=== PATIENT | female | born 1965 | race African-American/Black ===

== ENCOUNTER 2019-03-15 08:26 | Inpatient (IN) | payer OTHER ==
[2019-03-15] VITALS (47 sets, daily range): BP systolic 140–221; BP diastolic 72–132
[~2019-03-15] VITALS: Ht 165.1 cm; Wt 134.7 kg
--- NOTE | ~2019-03-15 | HC ---
[facility] [place] [address] CONSULTATION Name: ANCA URIOSTEGUI Room #: 215-P ADM IN M.R.#: [id number] Admission: 03/15/19 Attend Phys: Masha Rosales MD Discharge: Date of : 65 Report #: [id number] THIS REPORT FOR: cc: KYLAH OLIVO MD Physician not on staff Octaviano Anderson MD ~ THIS REPORT FOR: //name// CC: KYLAH Rosales Physician staff DATE OF SERVICE: 03/21/2019 HISTORY OF PRESENT ILLNESS: The patient is a 54-year-old -[place] female admitted with an acute asthma exacerbation with acute respiratory failure, influenza A. She was noted to have respiratory failure, was in the ICU, mechanically ventilated. She was extubated on 03/18/2019. She is on a Solu-Medrol taper to p.o. today. She is continuing on Tamiflu and is on IV ceftriaxone. We are seeing her in rehabilitation medicine consultation. PAST MEDICAL HISTORY: Bronchial asthma for 10 years, hypertension, and elevated lipids. She has a history of morbid obesity, BMI 49.7. She was receiving oxygen just at night with her CPAP. MEDICATIONS: Please see the full medication listing. ALLERGIES: No known drug allergies. SOCIAL HISTORY: Lives in an apartment with her brother. There are 3 steps in. She was premorbidly independent without gait aids. Brother is retired and can assist. REVIEW OF SYSTEMS: No current complaints of chest pain, shortness of breath or abdominal discomfort. PHYSICAL EXAMINATION: GENERAL: A 54-year-old obese -[place] female in no obvious distress. VITAL SIGNS: Last recorded temperature is 98, pulse 95, respirations 20, blood pressure is 143/59. The patient is alert, pleasant, oriented. HEENT: Appeared to be benign. NEUROLOGIC: Cranial nerves grossly intact. She is on 4 liters nasal cannula. EXTREMITIES: She has functional range of motion of both upper extremities. Strength is grade 4 to 4-/5. DTRs are trace to 1. Lower extremities, no focal calf swelling, functional range of motion with strength of grade 4/5 to 4-/5. DTRs are trace to 1. She is min assist with sit to stand, ambulating [address] [address] CONSULTATION Name: ANCA URIOSTEGUI Room #: 215-[facility] IN .R.#: [id number] Admission: 03/15/19 Attend Phys: Masha Rosales MD Discharge: Date of : 65 Report #: [id number] min assist without an assistive device. She was needing lower body dressing, min assist. ASSESSMENT: A 54-year-old white female with the following problem list: 1. Pulmonary rehabilitation. 2. Acute respiratory failure, improved. 3. Acute asthma exacerbation. 4. Hypertension. 5. Bronchial asthma in the past. 6. Morbid obesity. PLAN: Both physical therapy and occupational therapy have indicated that the patient is doing well from a functional perspective, I would anticipate that the patient should be able to discharge directly home to the home setting as she further medically stabilizes. This would appear to be a reasonable plan from my perspective. We will follow from the periphery, but would anticipate she should be able to return directly home as she further medically stabilizes. Again, rehabilitation [address] [place] [address] beds are tight and it would appear that she will likely be able to return directly home as she further medically stabilizes. By: [id number] Octaviano Anderson MD /nt
[2019-03-15] MEDS ORDERED: TRAZODONE HCL100 MG PO (08:45)
[2019-03-15] MEDS ORDERED: RESTORIL15 M1 PO (08:47)
[2019-03-15] MEDS ORDERED: TOPAMAX100 MG PO (08:48)
[2019-03-15] MEDS ORDERED: LIPITOR10 MG PO (08:48)
[2019-03-15] MEDS ORDERED: REMERON SOLTAB45 MG PO (08:48)
[2019-03-15] MEDS ORDERED: METFORMIN HCL500 M3 PO (08:49)
[2019-03-15] MEDS ORDERED: SPIRONOLACTONE25 MG PO (08:49)
[2019-03-15] MEDS ORDERED: INGREZZA40 MG PO (08:50)
[2019-03-15] MEDS ORDERED: NEXIUM40 M2 PO (08:50)
[2019-03-15] MEDS ORDERED: INVEGA6 MG PO (08:50)
[2019-03-15] MEDS ORDERED: MS CONTIN 30 MG30 M1 PO (08:51)
[2019-03-15] MEDS ORDERED: ROXICODONE15 M1 PO (08:52)
[2019-03-15 09:19] LABS: BE(vivo) 0.9 mmol/L (-2 to +3); HCO3 28.3 mmol/L (22.0-26.0); PCO2 58.3 mmHg (35.0-45.0); PO2 78.6 mmHg (80.0-100.0); pH 7.304 (7.360-7.450); sO2 94.2 % (92.0-98.0)
[2019-03-15 09:45] LABS: ABSOLUTE NEUTROPHILS 7.7 thou/uL (1.4-8.2); BASOPHILS 0.5 % (0.0-2.0); EOSINOPHILS 0.1 % (0.0-3.0); HEMATOCRIT 37.2 % (37.0-47.0); HEMOGLOBIN 11.4 gm/dL (12.0-15.0); LYMPHOCYTES 19.7 % (24.0-44.0); MCH 23.9 pg (26.0-34.0); MCHC 30.6 g/dL (28.0-37.0); MCV 78.1 fL (80.0-100.0); MONOCYTES 7.3 % (1.0-8.0); PLATELET COUNT 331 thou/uL (150-400); POLYS 72.4 % (36.0-66.0); RBC 4.76 mil/uL (4.20-5.00); WBC 10.7 thou/uL (4.0-11.0)
[2019-03-15 09:58] LABS: CALCIUM 8.9 mg/dL (8.5-10.1); POTASSIUM 3.2 mmol/L (3.5-5.1)
[2019-03-15 10:04] LABS: ALBUMIN 3.5 g/dL (3.4-5.0); DIRECT BILIRUBIN 0.2 mg/dL (<0.1-0.2); TOTAL BILIRUBIN 0.3 mg/dL (<0.1-1.0); TOTAL PROTEIN 8.6 g/dL (6.4-8.2)
[2019-03-15 11:02] LABS: ANISOCYTOSIS 1+; PLATELET ESTIMATE NORMAL
[2019-03-15 13:46] LABS: BE(vivo) 3.2 mmol/L (-2 to +3); HCO3 30.5 mmol/L (22.0-26.0); PCO2 59.8 mmHg (35.0-45.0); PO2 67.7 mmHg (80.0-100.0); pH 7.326 (7.360-7.450); sO2 91.7 % (92.0-98.0)
--- NOTE | 2019-03-15 16:00 | NUR ---
PT ARRIVED TO THE UNIT @ 1430 WITH THE ASSIST OF YOSHI OWEN. PT ARRIVED ON 3L OF 02, PT SATS IN THE LOW 90'S. 02 INCREASED TO 4L, SATS 90%. DR LOZANO CALLED AND REPORT GIVEN, BIPAP INITIATED.
--- NOTE | 2019-03-15 19:01 | NUR ---
VASCULAR ACCESS TEAM CONSULTED FOR PICC PLACEMENT. DISCUSSED BENEFITS AND RISKS WITH PT, VERBALIZED UNDERSTANDING. ORDER,CONSENT,LABS,HISTORY VERIFIED. ATTEMPTED GIOVANNA CEPHALIC BUT UNABLE TO PASS CATH PAST SHOULDER AREA. GIOVANNA BASILIC ALSO WIDELY PATENT WITHUSG. PICC TRIMMED TO 52CM INSERTED TO 2CM EXTERNAL. STAT CXR ORDERED.
--- NOTE | 2019-03-15 19:34 | NUR ---
CXR CONFIRMED PICC AT [facility], PICC RELEASED FOR IMMEDIATE USE PER PROTOCOL.
[2019-03-16] VITALS (25 sets, daily range): BP systolic 132–179; BP diastolic 72–98
--- NOTE | 2019-03-16 01:48 | NUR ---
PATIENT ABLE TO FOLLOW COMMANDS. ON PROPOFOL GTT, TITRATED FOR SEDATION. MEDICATED FOR PAIN RELIEF. POTASSUIM BEING REPLACED. TALKED TO SISTERWilliam MENDES DURING THE NIGHT. WILL CONTINUE TO MONITOR.
[2019-03-16 05:23] LABS: BE(vivo) -1.7 mmol/L (-2 to +3); HCO3 24.2 mmol/L (22.0-26.0); PCO2 45.5 mmHg (35.0-45.0); PO2 71.9 mmHg (80.0-100.0); pH 7.343 (7.360-7.450); sO2 93.6 % (92.0-98.0)
[2019-03-16 05:36] LABS: ABSOLUTE NEUTROPHILS 6.2 thou/uL (1.4-8.2); HEMATOCRIT 36.2 % (37.0-47.0); HEMOGLOBIN 11.2 gm/dL (12.0-15.0); LYMPHOCYTES 8.6 % (24.0-44.0); MCH 24.2 pg (26.0-34.0); MONOCYTES 4.4 % (1.0-8.0); PLATELET COUNT 332 thou/uL (150-400); RBC 4.64 mil/uL (4.20-5.00); RDW 16.8 % (10.5-14.5); WBC 7.2 thou/uL (4.0-11.0)
[2019-03-16 05:38] LABS: BE(vivo) 3.7 mmol/L (-2 to +3); HCO3 29.3 mmol/L (22.0-26.0); PCO2 48.8 mmHg (35.0-45.0); PO2 67.6 mmHg (80.0-100.0); pH 7.397 (7.360-7.450); sO2 93.3 % (92.0-98.0)
[2019-03-16 06:09] LABS: ALBUMIN 3.2 g/dL (3.4-5.0); CALCIUM 8.8 mg/dL (8.5-10.1); CREATININE 0.7 mg/dL (0.6-1.0); PHOSPHORUS 2.4 mg/dL (2.5-4.9); POTASSIUM 3.5 mmol/L (3.5-5.1); TOTAL BILIRUBIN 0.4 mg/dL (<0.1-1.0); TOTAL PROTEIN 8.4 g/dL (6.4-8.2)
--- NOTE | 2019-03-16 09:20 | NUR ---
Recommend start tube feed of vital high protein at 30ml/hr. Will follow up for goal rate recommendations on 03/17/19
--- NOTE | 2019-03-16 15:57 | NUR ---
PT ADMITTED RELATED TO ASTHMA EXCERBATION; HYPOXIA; FLU TYPE A. CM REVIEWED CHART AND SPOKE WITH CARE TEAM. PT IS CURRENTLY SEDATED AND INTUBATED. CM CALLED DELORIS HER LISTED CONTACTS AND LEFT MESSAGES. GUY CALLED CM BACK SHE IS PT'S SISTER AND STATED THAT SHE IS ALSO SICK. SHE INDICATED THAT PT'S BROTHER MAHNAZ IS IN ROOM 218 HERE AT [facility] AND THAT HE IS HER DPOA. SHE STATED THAT PT RESIDES IN AN APARTMENT IN [facility] WITH HER BROTHER WITH 5 STEPS TO ENTER AND NO STEPS INSIDE. 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 SISTER INDICATED PT HDA A NEBULIZER FOR HOME USE. CM TO FOLLOW INDICATED WITH DC PLANNING.
--- NOTE | 2019-03-16 20:10 | NUR ---
ASSUMED CARE OF PT AT 0700. NO CPAP TODAY, TITRATE DOWN FIO2. FOLLOWS COMMANDS. FAMILY MAY BRING INVEGA FROM HOME PER DR TYLER.
[2019-03-17] VITALS (24 sets, daily range): BP systolic 155–191; BP diastolic 78–102
[2019-03-17 04:34] LABS: HEMATOCRIT 36.9 % (37.0-47.0); HEMOGLOBIN 11.3 gm/dL (12.0-15.0); MCH 23.7 pg (26.0-34.0); MCHC 30.6 g/dL (28.0-37.0); MCV 77.5 fL (80.0-100.0); RBC 4.76 mil/uL (4.20-5.00); RDW 17.2 % (10.5-14.5); WBC 10.5 thou/uL (4.0-11.0)
[2019-03-17 04:38] LABS: CALCIUM 8.5 mg/dL (8.5-10.1); CREATININE 0.8 mg/dL (0.6-1.0); POTASSIUM 3.2 mmol/L (3.5-5.1)
[2019-03-17 10:00] LABS: BE(vivo) 7.5 mmol/L (-2 to +3); HCO3 33.1 mmol/L (22.0-26.0); PCO2 50.8 mmHg (35.0-45.0); pH 7.432 (7.360-7.450); sO2 91.7 % (92.0-98.0)
--- NOTE | 2019-03-17 10:46 | NUR ---
ON THE VENT WITH LIGHT SEDATION, AWAKENS AND FOLLOWS SOME COMMANDS. HYPERTENSIVE AND DR. TYLER NOTIFIED HE ROUNDED. OTHER VITALS STABLE. CPAP TRIAL THIS MORNING AND ABG OBTAINED AND PAGE PLACED TO DR. LOZANO. TOLERATING TF W/MINIMAL RESIDUALS. ALBERTO WITH ADEQUATE OUTPUT NOTED. WILL CONTINUE WITH POC.
--- NOTE | 2019-03-17 11:07 | NUR ---
DR. LOZANO CALLED BACK AND ABG RESULTS REPORTED. ORDERS TO KEEP SEDATED ON THE VENT AND CPAP AGAIN TOMORROW ONCE ABLE TO WEAN OFF SEDATION AND/OR SWITCH TO DIFFERENT SEDATIVE.
--- NOTE | 2019-03-17 16:03 | NUR ---
CALL PLACED TO INDIVIDUAL LISTED GATE WATCHMAN (MAHNAZ URIOSTEGUI) IN REGARDS TO BRINGING IN SOME HOME MED (INVIGA) THAT [facility] DOESN'T STOCK. NO ANS ON THE PHONE BRIEF MESSAGE LEFT ON VOICEMAIL FOR MAHNAZ TO CALL BACK.
[2019-03-18] VITALS (28 sets, daily range): BP systolic 153–195; BP diastolic 78–107
[2019-03-18 03:23] LABS: HEMOGLOBIN 12.1 gm/dL (12.0-15.0); MCH 23.5 pg (26.0-34.0); MCHC 30.1 g/dL (28.0-37.0); RBC 5.13 mil/uL (4.20-5.00); RDW 16.9 % (10.5-14.5); WBC 11.4 thou/uL (4.0-11.0)
[2019-03-18 03:30] LABS: CALCIUM 8.3 mg/dL (8.5-10.1); CREATININE 0.9 mg/dL (0.6-1.0)
--- NOTE | 2019-03-18 07:41 | NUR ---
Family was in last night and said they they would bring the pt's medication, Invega, they're questions were answered and pt did interact with them. BGL levels remain elevated, she has received Moderate SSI, and this morning it is noted that her solumedrol has been titrated down. She also remains hypertensive, especially with the decrease in propofol, placement has been checked and it is believed that she moves her arm when BP is being taken. The bed is in the low/lockedposition, the call light is within reach and the siderails are up x 4.
--- NOTE | 2019-03-18 09:23 | NUR ---
Continue tube feeding at 30ml/hr due to high propofol demands.
[2019-03-18] MEDS ORDERED: INVEGA6 MG PO (09:47)
[2019-03-18 10:39] LABS: BE(vivo) 7.2 mmol/L (-2 to +3); PCO2 50.9 mmHg (35.0-45.0); PO2 70.9 mmHg (80.0-100.0); pH 7.429 (7.360-7.450); sO2 94.4 % (92.0-98.0)
--- NOTE | 2019-03-18 18:59 | NUR ---
ASSUMED CARE OF PT AT 0700. PT IS CURRENTLY A GCS OF 15. PT EXTUBATED AT 1145 AND FAUSTINO WELL WITH 6L NS O2. PT HAS BEEN AFIBRILE. PT ENCOURAGED TO USE INCENTIVE SPIROMETER. B/Ps HIGH AND PHYSICIAN NOTIFIED. ORDERS RCVD. K+ LOW THIS MORNING AND ORDERS TO REPLACED RCVD.
[2019-03-19] VITALS (42 sets, daily range): BP systolic 130–182; BP diastolic 76–96
[2019-03-19 03:44] LABS: HEMATOCRIT 40.8 % (37.0-47.0); HEMOGLOBIN 12.3 gm/dL (12.0-15.0); MCH 23.1 pg (26.0-34.0); MCHC 30.2 g/dL (28.0-37.0); MCV 76.5 fL (80.0-100.0); RBC 5.33 mil/uL (4.20-5.00); RDW 16.6 % (10.5-14.5); WBC 14.2 thou/uL (4.0-11.0)
[2019-03-19 03:51] LABS: CALCIUM 8.2 mg/dL (8.5-10.1); CREATININE 0.8 mg/dL (0.6-1.0)
[2019-03-19 03:55] LABS: POTASSIUM 2.6 mmol/L (3.5-5.1)
--- NOTE | 2019-03-19 06:25 | NUR ---
Pt presents with flat affect, questions are answered with only yes/no responses, she reports low back discomfort, but won't allow staff to assist with turns, (she has been shifted anyway). BP has been better this shift, no further hydralazine was given, SBP 130-150 mmHg. Pt was on a CPaP for a few hours last night, and is currently on 4 L/m via High Flow NC, she has a dry cough, is using sx and her IS. She is taking sm quantity of ice chips to moisten her mouth, no swallowing difficulties are noted. The bed is in the low/locked position, the call light is within reach and the bed alarm is set. Will continue to monitor
--- NOTE | 2019-03-19 14:26 | NUR ---
Nurse talked with Dr. Au about patient not having a bowel movement recorded since the . Physician expressed he would look into this. Physician also informed of home medications to see if we could reorder them, he reordered some home medications. Diet order obtained by physician. When burton arrived patient informed RN that she wears dentures but they are not here. Nurse offered to call family to have them bring her dentures, however patient expressed she did not want nurse to. Intake and output as documented. Vital signs stable with heart rate 70's-80's. Blood pressure has not sustained in clinical parameter to get prn hydralazine. Bedside swallow performed and patient passed with solid and liquids. No hoarse voice noted, no pocketing, no coughing noted. She was able to swallow all her pills without difficulty. Report given to night clerk RN for continuation of care. Patient progressing towards plan of care of improving oxygenation, adding in diet order, and will attempt to increase activity as tolerated.
--- NOTE | 2019-03-19 18:12 | NUR ---
PT TOLERATING PO WELL. PROGRESS TOWARDS GOALS.
[2019-03-20] VITALS (13 sets, daily range): BP systolic 132–162; BP diastolic 73–105
[2019-03-20 00:22] LABS: MAGNESIUM 2.3 mg/dL (1.8-2.4); POTASSIUM 3.7 mmol/L (3.5-5.1)
[2019-03-20 05:39] LABS: HEMATOCRIT 40.5 % (37.0-47.0); HEMOGLOBIN 12.4 gm/dL (12.0-15.0); MCH 23.8 pg (26.0-34.0); MCHC 30.7 g/dL (28.0-37.0); MCV 77.3 fL (80.0-100.0); RBC 5.23 mil/uL (4.20-5.00)
[2019-03-20 05:54] LABS: CALCIUM 8.6 mg/dL (8.5-10.1); CREATININE 0.7 mg/dL (0.6-1.0); POTASSIUM 3.6 mmol/L (3.5-5.1)
--- NOTE | 2019-03-20 13:50 | NUR ---
PT TRANSFERRED TO CCT ROOM 215. REPORT CALLED TO BRAYDEN CLEARY.
--- NOTE | 2019-03-20 17:59 | NUR ---
ASSUMED CARE OF PT AT APPROX 1400 TRANSFER FROM ICU. ASSESSMENT CHARTED. VSS. PT ON 4L NC, NO C/O SOA. C/O PAIN TREATED WITH IV MEDS WITH PARTIAL RELIEF. ALBERTO IN PLACE. WILL CONTINUE TO MONITOR AND FOLLOW POC.
[2019-03-21 00:35] VITALS: BP 137/72
[2019-03-21 05:15] VITALS: BP 162/93
[2019-03-21 08:00] VITALS: BP 184/96
--- NOTE | 2019-03-21 11:33 | NUR ---
Followup: has been extubated, transferred out of ICU, tube feeds discontinued and diet advanced. Eating 50-100%. BG still elevated 207-314, hx DM and steroid to discontinue. Wt is obese. Nutrition status changed to low nutrition risk
[2019-03-21 12:00] VITALS: BP 143/59
--- NOTE | 2019-03-21 14:28 | NUR ---
PATIENT SEEN BY DR. TOSCANO THIS DATE. PHYSICAL AND OCCUPATIONAL THERAPY SAW PATIENT AND INDICATED THAT PATIENT SHOULD BE ABLE TO RETURN DIRECTLY HOME WHEN MEDICALLY CLEARED. DR. TOSCANO IN AGREEMENT. CHIEF PROJECTIONIST INFORMED. THANK YOU FOR THIS REFERRAL.
--- NOTE | 2019-03-21 14:42 | NUR ---
PT A&OX4, VSS, PAIN IN BACK. ASSUMED CARE OF PT APPROX 0700. PT HAS NON PRODUCTIVE COUGH. PT REMANINS ON ISOLATION FOR EMELI ALBERTO REMOVED. NO SIGNS OF DISTRESS. WILL CONTINUE TO MONITOR.
--- NOTE | 2019-03-21 16:57 | NUR ---
[facility] SPOKE WITH LILIAM IN INTAKE SHE RECEIVED REFERRAL AND WILL REVIEW. DP TO FOLLOW.
--- NOTE | 2019-03-21 17:00 | NUR ---
met with patient who was evaled by acute rehab who reports too high level for acute rehab. Therapy reports home [place]. Discussed with patient post acute care. patient reports she wants to dc to home [place]. She has plans to stay at her brother [place] [address] [phone]. Patient reports he has home oxygen at night from [facility] to bleed into her CPAP at night. sp with [facility] who will assist with delivary of 02 to brothers address for nocturnal oxygen. However patient may need daytime oxygen. Sat/excercise in process. Casemgt following.
[2019-03-21 17:30] VITALS: BP 123/78
--- NOTE | 2019-03-21 18:28 | NUR ---
PATIENT ABLE TO VOID IN BATHROOM AFTER ALBERTO CATHETER REMOVAL.
[2019-03-21 21:27] VITALS: BP 132/82
--- NOTE | 2019-03-21 23:46 | NUR ---
ASSUMED PT CARE AROUND 1929. AXOX3. DROPLET ISO FOR INF A. AROUND 2129, RECEIVED AN ORDER TO D/C TELE AN TRASFER TO M/S. PT MADE AWARE, REPORT CALLED TO [facility]. CHART,MEDS HANDED TO RECEIVING RN AT BEDSIDE. FAMILY MEMBER AT BEDSIDE TO TRASFER WITH PT. RT EQUIP TRANSPORTED BY RT. PT TRANSFERRED IN STABLE CONDTION.
--- NOTE | 2019-03-22 04:12 | NUR ---
PT TRANSFERRED FROM CCU @2330 VIA BED. ISOLATION MAINTAINED FOR INFLUENZA-A. A&OX4 FOR THIS NURSE. FAMILY AT BEDSIDE FOR THE NIGHT. CALLED RT FOR CPAP SET UP FOR BEDTIME. IV INTACT AND FLUIDS GOING AT 75/HR. FALL PREC IN PLACE AND WILL CONT WITH POC TILL EOS.
[2019-03-22 04:57] VITALS: BP 125/73
[2019-03-22 08:35] VITALS: BP 120/63
[2019-03-22 10:29] VITALS: BP 120/63
[2019-03-22] MEDS ORDERED: NORVASC10 MG PER TUBE (14:01)
[2019-03-22] MEDS ORDERED: BENZONATATE100 MG PO (14:02)
[2019-03-22] MEDS ORDERED: TRADJENTA5 MG PO (14:03)
[2019-03-22] MEDS ORDERED: PROAIR HFA8.5 GM INH (14:05)
[2019-03-22] MEDS ORDERED: CEFDINIR300 MG PO (14:05)
[2019-03-22] MEDS ORDERED: PREDNISONE 10 M10 M1 PO (14:06)
--- NOTE | 2019-03-22 15:56 | NUR ---
CARE TEAM INDICATED THAT PT IS MEDICALLY STABLE TO DC HOME THIS DAY. PT IS TO HAVE [facility] UPON DC. ORDERS HAVE BEEN FAXED. EX OX TESTING WAS DONE AND PT NEEDED 2L VIA MD WITH ACTIVITY. CM FAXED ORDER TO [facility]. CM CALLED OFFICE TO CONFIRM RECIEPT AND GET ETA ON ELIVERY BUT GOT ANSWERING SERVICE. CM CALLED AND SPOKE WITH LIAISON LILIAM HE STATED HE WOULD FOLLOW UP WITH OFFICE AND BE AT FACILITY IN ABOUT 45MINS OF THIS NOTE WITH DELIVERY OF PORTABLE TANK. RT STATED THAT PT TOLD THEM THAT HE NEBULIZER IS BROKEN AND THAT SHE HAD BEEN USING BROTHERS UNIT WITH HER MEDS. CM TO NOTIFY [facility] AND ASSIST NEEDED. IT IS ANTICPATED THAT WILL DC TO A LOCAL FAMILY MEMBERS HOUSE THIS EVENING AND WILL EVENTUALLY RETURN HOME TO [facility]. NO OTHER CM INTERVENTION INDICATED. CASE CLOSED.
--- NOTE | 2019-03-22 17:06 | NUR ---
FAXED DC ORDERS/SUMMARY [facility] SPOKE WITH JARRETT IN INTAKE THEY RECEIVED DC ORDERS AND WILL NOTIFY PT TIME OF VISITS.
--- NOTE | 2019-03-22 17:22 | NUR ---
PT ALERT AND ORIENTED TIMES FOUR. VSS, 93%4L, IVF INFUSING PER ORDER. SCHEDULED PAIN MEDICATIONS CONTROLLING PAIN WELL. PT TOLERATES MEDS AND MEALS. PT UP AB RAJAN WITH NO ISSUES. PLANS FOR DISCHARGE TODAY. PT PROGRESSING TOWARDS POC GOALS.
== END 2019-03-22 18:20 | disposition home health service (06) | DRG 208 ==
LOC: ER 08:26 → EROBS 13:38 → ICU 13:38 → 2N 03-20 13:50 → 4S 03-21 23:17 → ENTRNSPT 03-22 17:39 → 4S 03-22 18:20
PROVIDERS: Emergency Medicine; Hospitalist; Pediatrics; ADMIT Internal Medicine
PROC: 5A1945Z Respiratory Ventilation, 24-96 Consecutive Hours (ICD-10-PCS; principal; 2019-03-15)
PROC: 05HY33Z Insertion of Infusion Device into Upper Vein, Percutaneous Approach (ICD-10-PCS; principal; 2019-03-15)
PROC: 0BH17EZ Insertion of Endotracheal Airway into Trachea, Via Natural or Artificial Opening (ICD-10-PCS; principal; 2019-03-15)
PROC: 5A09357 Assistance with Respiratory Ventilation, Less than 24 Consecutive Hours, Continuous Positive Airway Pressure (ICD-10-PCS; principal; 2019-03-15)
PROC: 5A09357 Assistance with Respiratory Ventilation, Less than 24 Consecutive Hours, Continuous Positive Airway Pressure (ICD-10-PCS; 2019-03-19)
PROC: 5A09357 Assistance with Respiratory Ventilation, Less than 24 Consecutive Hours, Continuous Positive Airway Pressure (ICD-10-PCS; 2019-03-20)
PROC: 5A09357 Assistance with Respiratory Ventilation, Less than 24 Consecutive Hours, Continuous Positive Airway Pressure (ICD-10-PCS; 2019-03-21)
PROC: 5A09357 Assistance with Respiratory Ventilation, Less than 24 Consecutive Hours, Continuous Positive Airway Pressure (ICD-10-PCS; 2019-03-22)
DX: J96.01 Acute respiratory failure with hypoxia (principal); J45.901 Unspecified asthma with (acute) exacerbation; Z68.42 Body mass index [BMI] 45.0-49.9, adult; J10.1 Influenza due to other identified influenza virus with other respiratory manifestations; E11.9 Type 2 diabetes mellitus without complications; I10 Essential (primary) hypertension; E78.5 Hyperlipidemia, unspecified; J96.02 Acute respiratory failure with hypercapnia; G47.33 Obstructive sleep apnea (adult) (pediatric); E66.01 Morbid (severe) obesity due to excess calories; D64.9 Anemia, unspecified; Z87.891 Personal history of nicotine dependence; Z82.49 Family history of ischemic heart disease and other diseases of the circulatory system; Z83.3 Family history of diabetes mellitus; Z80.9 Family history of malignant neoplasm, unspecified; Z79.84 Long term (current) use of oral hypoglycemic drugs; Z79.891 Long term (current) use of opiate analgesic; Z79.899 Other long term (current) drug therapy
CPT/HCPCS: 10078; 10081; 10102; 27000

== ENCOUNTER 2019-06-26 01:36 | Emergency (ER) | payer OTHER ==
[~2019-06-26] VITALS: Ht 165.1 cm; Wt 133.4 kg
[~2019-06-26 01:36] MED LIST: BENZONATATE100 MG PO; CEFDINIR300 MG PO; INGREZZA40 MG PO; INVEGA6 MG PO; LIPITOR10 MG PO; METFORMIN HCL500 M3 PO; MS CONTIN 30 MG30 M1 PO; NEXIUM40 M2 PO; NORVASC10 MG PER TUBE; PREDNISONE 10 M10 M1 PO; PROAIR HFA8.5 GM INH; REMERON SOLTAB45 MG PO; RESTORIL15 M1 PO; ROXICODONE15 M1 PO; SPIRONOLACTONE25 MG PO; TOPAMAX100 MG PO; TRADJENTA5 MG PO; TRAZODONE HCL100 MG PO
[2019-06-26] MEDS ORDERED: ESTRIDOL PO (01:50)
[2019-06-26] MEDS ORDERED: ZANAFLEX4 M1 PO (01:51)
[2019-06-26 02:02] LABS: ABSOLUTE NEUTROPHILS 8.8 thou/uL (1.4-8.2); BASOPHILS 0.8 % (0.0-2.0); EOSINOPHILS 1.6 % (0.0-3.0); HEMATOCRIT 40.6 % (37.0-47.0); HEMOGLOBIN 12.4 gm/dL (12.0-15.0); LYMPHOCYTES 27.7 % (24.0-44.0); MCH 23.5 pg (26.0-34.0); MCHC 30.6 g/dL (28.0-37.0); MCV 76.8 fL (80.0-100.0); MONOCYTES 4.2 % (1.0-8.0); PLATELET COUNT 375 thou/uL (150-400); POLYS 65.7 % (36.0-66.0); RBC 5.29 mil/uL (4.20-5.00); RDW 19.1 % (10.5-14.5); WBC 13.5 thou/uL (4.0-11.0)
[2019-06-26 02:11] LABS: ANION GAP 7 mmol/L (7-16); BUN 11 mg/dL (7-18); CALCIUM 8.7 mg/dL (8.5-10.1); CHLORIDE 103 mmol/L (98-107); CO2 29 mmol/L (21-32); CREATININE 1.2 mg/dL (0.6-1.0); GLUCOSE 137 mg/dL (74-106); POTASSIUM 3.9 mmol/L (3.5-5.1); SODIUM 139 mmol/L (136-145)
[2019-06-26 02:21] LABS: ALBUMIN 3.3 g/dL (3.4-5.0); SGOT 16 U/L (15-37); SGPT 25 U/L (30-65); TOTAL BILIRUBIN 0.2 mg/dL (<0.1-1.0); TOTAL PROTEIN 7.3 g/dL (6.4-8.2); TROPONIN-I <0.06 ng/mL (<0.06)
[2019-06-26 02:45] LABS: ANISOCYTOSIS 2+; HYPOCHROMASIA 1+; POLYCHROMASIA 1+
[2019-06-26 02:56] LABS: URINE BILIRUBIN NEGATIVE (Negative); URINE BLOOD NEGATIVE (Negative); URINE CLARITY CLEAR; URINE COLOR YELLOW; URINE GLUCOSE-RANDOM* 3+ (Negative); URINE KETONES TRACE (Negative); URINE LEUKOCYTES-REFLEX NEGATIVE (Negative); URINE NITRITE-REFLEX NEGATIVE (Negative); URINE PROTEIN (DIPSTICK) NEGATIVE (Negative); URINE SPECIFIC GRAVITY 1.025 (1.005-1.035); URINE UROBILINOGEN 0.2 E.U./dl (0.2-1.0)
[2019-06-26 03:19] VITALS: BP 126/82
--- NOTE | 2019-06-26 10:24 | EKG ---
[facility] [place] [address] ELECTROCARDIOGRAM REPORT Name: ANCA URIOSTEGUI Room #: DEP [facility]#: [id number] Admission: 06/26/19 Attend Phys: Discharge: 06/26/19 Date of : 65 Report #: [id number] THIS REPORT FOR: cc: [facility] - Clinic physician unknown [facility] - Clinic physician unknown Dar Busch MD [facility] THIS REPORT FOR: //name// [facility] ED Test Date: 2019-06-26 Test Time: 02:00:43 Pat Name: ANCA URIOSTEGUI Department: Room: Gender: Alumni Coordinator: [facility] : 1965 Requested By: Parth Mazariegos Order Number: [id number] MD: Dar Busch Measurements Intervals [place] Rate: 67 P: 53 UT: 164 QRS: 25 QRSD: 91 T: -5 QT: 420 QTc: 444 Interpretive Statements Sinus rhythm Borderline T wave abnormalities No previous ECG available for comparison Electronically Signed On 06-26-2019 10:23:10 CDT by Dar Busch [email or web address] <ELECTRONICALLY SIGNED> By: Dar Busch MD, [facility] 06/26/19 1023 D: [id number] 9 Dar Busch MD, FACC /EPI
== END 2019-06-26 03:20 | disposition home or self-care (01) ==
LOC: ER 01:36
PROVIDERS: Emergency Medicine
DX: R55 Syncope and collapse (principal); R42 Dizziness and giddiness; R25.1 Tremor, unspecified; I10 Essential (primary) hypertension; E11.9 Type 2 diabetes mellitus without complications; E78.5 Hyperlipidemia, unspecified; J45.909 Unspecified asthma, uncomplicated; G89.29 Other chronic pain; Z79.899 Other long term (current) drug therapy

== ENCOUNTER 2020-05-08 19:27 | Emergency (ER) | payer OTHER ==
[~2020-05-08] VITALS: Ht 165.1 cm; Wt 114.8 kg
[~2020-05-08 19:27] MED LIST changes: +ESTRIDOL PO; +ZANAFLEX4 M1 PO
[2020-05-08 21:50] LABS: ABSOLUTE NEUTROPHILS 12.3 thou/uL (1.4-8.2); BASOPHILS 0.2 % (0.0-2.0); EOSINOPHILS 0.4 % (0.0-3.0); HEMATOCRIT 39.1 % (37.0-47.0); HEMOGLOBIN 12.2 gm/dL (12.0-15.0); LYMPHOCYTES 9.6 % (24.0-44.0); MCH 26.1 pg (26.0-34.0); MCHC 31.1 g/dL (28.0-37.0); MONOCYTES 4.9 % (1.0-8.0); PLATELET COUNT 367 thou/uL (150-400); POLYS 84.9 % (36.0-66.0); RBC 4.65 mil/uL (4.20-5.00); RDW 18.1 % (10.5-14.5); URINE BILIRUBIN NEGATIVE (Negative); URINE BLOOD NEGATIVE (Negative); URINE CLARITY CLEAR; URINE COLOR YELLOW; URINE GLUCOSE-RANDOM* 1+ (Negative); URINE KETONES TRACE (Negative); URINE LEUKOCYTES-REFLEX NEGATIVE (Negative); URINE NITRITE-REFLEX NEGATIVE (Negative); URINE PROTEIN (DIPSTICK) NEGATIVE (Negative); URINE SPECIFIC GRAVITY 1.025 (1.005-1.035); WBC 14.5 thou/uL (4.0-11.0)
[2020-05-08 21:54] LABS: CALCIUM 8.9 mg/dL (8.5-10.1); CREATININE 1.1 mg/dL (0.6-1.0)
[2020-05-08 21:59] LABS: ALBUMIN 2.7 g/dL (3.4-5.0); TOTAL BILIRUBIN 0.7 mg/dL (0.2-1.0); TOTAL PROTEIN 6.9 g/dL (6.4-8.2)
[2020-05-08] MEDS ORDERED: GLYCERIN1 EAC1 RECTAL (22:14)
[2020-05-08] MEDS ORDERED: ONDANSETRON HCL4 M2 PO (22:15)
[2020-05-08 23:04] VITALS: BP 110/71
== END 2020-05-08 23:23 | disposition home or self-care (01) ==
LOC: ER 19:27
PROVIDERS: Nurse Practitioner
DX: K59.00 Constipation, unspecified (principal); E11.9 Type 2 diabetes mellitus without complications; I10 Essential (primary) hypertension; E78.5 Hyperlipidemia, unspecified; Z79.899 Other long term (current) drug therapy